=== PATIENT | female | born 1960 | race Native Hawaiian/Other Pacific Islander ===

== ENCOUNTER 2017-02-05 08:42 | Day surgery (SDC) | payer OTHER ==
[2017-01-30 08:03] VITALS: BMI 29.4
[2017-02-05] MEDS ORDERED: Lidocaine 2% w Epi 1:100,000 Inj IJ ONE (11:01)
[2017-02-05] MEDS ORDERED: ceFAZolin 1 gm FROZEN Premix 50 ML IVPB ONE (11:02)
[2017-02-05] MEDS ORDERED: Midazolam 2 MG/2 ML VIAL ONE (11:12)
[2017-02-05] MEDS ORDERED: Propofol 10 mg/ml Inj (20 ML) ONE ×2 (11:13→12:13)
[2017-02-05] MEDS ORDERED: Succinylcholine Chloride 20 mg/ml Syr (5 ml) IV ONE (11:13)
[2017-02-05] MEDS ORDERED: Lactated Ringer's 1,000 ML IV ONE ×2 (11:20→12:00)
--- NOTE | 2017-02-05 12:32 | PCM.SURG1 ---
Surgeon's Initial Post Op Note - Surgeon's Notes Surgeon: Dr. Sullivan Advertisement Compositor: Dr. Bauer PGY-1 Type of Anesthesia: General Endo Pre-Operative Diagnosis: submandibular mass Operative Findings: see operative report Post-Operative Diagnosis: see operative report Operation Performed: resection of tail end of parotid gland. excision of submandibular lymph node Specimen/Specimens Removed: tail end of parotid. submandibular lymph node Estimated Blood Loss: EBL {In ML}: 10 Blood Products Given: N/A Drains Used: No Drains Post-Op Condition: Good Date of Surgery/Procedure: 02/05/17 Time of Surgery/Procedure: 11:30
--- NOTE | 2017-02-05 13:03 | OP ---
PROCEDURE DATE: 02/05/2017 PREOPERATIVE DIAGNOSES: Mass left submandibular area and possibly mass on the inferior portion of th e parotid gland on the left side. PROCEDURE: Under general anesthesia, the patient prepared and draped in sterile fashion. An incisio n was made just around the area of the angle of the mandible, going slightly behind the ear, extended down through subcutaneous tissue down into the platysma. No nerves were involved or encountered dur ing this part of the procedure. The flaps were then developed underneath the platysma. Dissection w as carried all the way to expose the inferior portion of the parotid gland. No tumor seems to be present, but there was an induration noted in this area. This was then partially excised. Bleede rs controlled with electrocautery. Attention was then focused on the very deep submandibular mass. This appears to be a large lymph node. With blunt dissection, the mass was then enucleated and was s ubmitted as a specimen. No bleeding was noted. The wound was then closed utilizing interrupted sutu res of 3-0 Vicryl for the platysma layer and the skin was closed with a subcuticular suture of 4-0 Mo nocryl. ESTIMATED BLOOD LOSS: About 10 mL. COMPLICATIONS: None. Yakov Sullivan MD cc: [id number] TT: 02/05/2017 13:02:15 en
[2017-02-05] MEDS ORDERED: HYDROmorphone 0.5 mg/0.5 ml ISec IVP PRN (13:30)
[2017-02-05 16:05] VITALS: BP 102/78; PULSE 77; RESP 18; TEMP 97.1; O2SAT 100
== END 2017-02-05 16:36 | disposition home or self-care (01) ==
LOC: C.SDS 08:42
PROVIDERS: ATTEND Surgery
DX: D11.0 Benign neoplasm of parotid gland (principal); I10 Essential (primary) hypertension; E11.9 Type 2 diabetes mellitus without complications; E78.00 Pure hypercholesterolemia, unspecified
CPT/HCPCS: 42405; 82948; 88305; 88307; J0690; J1170; J2250; J2405; J2704; J3010; J7120

== ENCOUNTER 2017-09-14 14:52 | Emergency (ER) | payer OTHER ==
[2017-09-14 14:52] VITALS: BMI 29.4
[2017-09-14 15:06] VITALS: O2SAT 98
--- NOTE | 2017-09-14 16:18 | CT ---
PROCEDURE: CT HEAD WITHOUT CONTRAST. HISTORY: injury COMPARISON: None available. TECHNIQUE: Axial computed tomography images were obtained through the head/brain without intravenous contrast. Radiation dose: Total exam DLP = 895 mGy-cm. This CT exam was performed using one or more of the following dose reduction techniques: Automated exposure control, adjustment of the mA and/or kV according to patient size, and/or use of iterative reconstruction technique. FINDINGS: HEMORRHAGE: No intracranial hemorrhage. BRAIN: No mass effect or edema. No atrophy or chronic microvascular ischemic changes. VENTRICLES: Unremarkable. No hydrocephalus. CALVARIUM: Unremarkable. PARANASAL SINUSES: Unremarkable as visualized. No significant inflammatory changes. MASTOID AIR CELLS: Unremarkable as visualized. No inflammatory changes. OTHER FINDINGS: None. IMPRESSION: No acute findings
--- NOTE | 2017-09-14 16:38 | CT ---
PROCEDURE: CT ORBITS WITHOUT CONTRAST. HISTORY: injury COMPARISON: None available. TECHNIQUE: Axial CT images of the orbits were obtained. Coronal and sagittal reformats were generated. Radiation dose: Total exam DLP = 924 mGy-cm. This CT exam was performed using one or more of the following dose reduction techniques: Automated exposure control, adjustment of the mA and/or kV according to patient size, and/or use of iterative reconstruction technique. FINDINGS: RIGHT ORBIT: RIGHT BONY ORBIT: Normal. RIGHT INTRAORBITAL STRUCTURES: Globe: Normal. Extraocular muscles: Normal. Post septal space: Normal. Optic Nerve: Normal. Lacrimal Apparatus: Normal. RIGHT PRESEPTAL SOFT TISSUES: Normal. LEFT ORBIT: LEFT BONY ORBIT: Normal. LEFT INTRAORBITAL STRUCTURES: Globe: Normal. Extraocular muscles: Normal. Post septal space: Normal Optic Nerve: Normal. . Lacrimal Apparatus: Normal. LEFT PRESEPTAL SOFT TISSUES: Normal. OTHER: Degenerative changes are seen in the TMJs left greater than right IMPRESSION: Unremarkable non contrast enhanced CT of the orbits.
[2017-09-14 16:56] VITALS: BP 148/99; PULSE 87; RESP 18; TEMP 98.2
--- NOTE | 2017-09-14 17:18 | C.PDOC ---
History Of Present Illness 57 year old female, who is a [employer] employee, presents to the ED for evaluaiton of pain and redness to her left eyebrow and left side of her nose which began earlier today. Patient was working on the centrifuge in the lab when the cover suddenly few off and struck her on her face. Patient was wearing glasses at the time of incident. Patient denies vision change, dizziness, active bleeding, or any other injuries at this time. Time Seen by Provider: 09/14/17 15:12 Chief Complaint (Nursing): Abnormal Skin Integrity History Per: Patient History/Exam Limitations: no limitations Onset/Duration Of Symptoms: Hrs Current Symptoms Are (Timing): Still Present Location Of Injury: Left: Face (eyebrow, side of nose ) Quality Of Symptoms: Painful Additional History Per: Patient Past Medical History Reviewed: Historical Data, Nursing Documentation, Vital Signs Vital Signs: Last Vital Signs Temp 98.2 F 09/14/17 16:55 Pulse 87 09/14/17 16:55 Resp 18 09/14/17 16:55 BP 148/99 H 09/14/17 16:55 Pulse Ox 98 09/14/17 22:04 - Medical History PMH: Anxiety, Gall Bladder Disease, HTN, Hypercholesterolemia, Peripheral Edema Surgical History: Cholecystectomy, Endoscopy - [facility] Procedures INJECT/INFUSE NEC (01/07/15) Family History: States: Unknown Family Hx - Social History Hx Alcohol Use: No Hx Substance Use: No - Immunization History Hx Tetanus Toxoid Vaccination: No Hx Influenza Vaccination: Yes (07/2017) Hx Pneumococcal Vaccination: No Review Of Systems Eyes: Negative for: Vision Change Skin: Positive for: Other (left eyebrow and side of nose ) Neurological: Negative for: Dizziness Physical Exam - Physical Exam Appears: Non-toxic, No Acute Distress Skin: Normal Color, Warm, Dry, Other (erythema to elft eyebrow and left nasal area) Head: Tenderness (left eyebrow), No Abrasion, No Laceration Eye(s): bilateral: Normal Inspection Nose: No Epistaxis, No Deformity, Tenderness (left ), No Septal Hematoma Oral Mucosa: Moist Neck: Supple Extremity: Normal ROM, Capillary Refill (less than 2 seconds ) Neurological/Psych: Oriented x3, Normal Speech, Normal Cognition Gait: Steady ED Course And Treatment O2 Sat by Pulse Oximetry: 98 (RA) Pulse Ox Interpretation: Normal - CT Scan/US CT Orbit Other Rad Studies (CT/US): Interpreted By Me, Read By Radiologist, Radiology Report Reviewed CT/US Interpretation: PROCEDURE: CT ORBITS WITHOUT CONTRAST. HISTORY: injury. COMPARISON: None available. TECHNIQUE: Axial CT images of the orbits were obtained. Coronal and sagittal reformats were generated. Radiation dose: Total exam DLP = 924 mGy-cm. This CT exam was performed using one or more of the following dose reduction techniques: Automated exposure control, adjustment of the mA and/or kV according to patient size, and/or use of iterative reconstruction technique. FINDINGS: RIGHT ORBIT: RIGHT BONY ORBIT: Normal. RIGHT INTRAORBITAL STRUCTURES: Globe: Normal. Extraocular muscles: Normal. Post septal space: Normal. Optic Nerve: Normal. Lacrimal Apparatus: Normal. RIGHT PRESEPTAL SOFT TISSUES: Normal. LEFT ORBIT: LEFT BONY ORBIT: Normal. LEFT INTRAORBITAL STRUCTURES: Globe: Normal. Extraocular muscles: Normal. Post septal space: Normal. Optic Nerve: Normal. . Lacrimal Apparatus : Normal. LEFT PRESEPTAL SOFT TISSUES: Normal. OTHER: Degenerative changes are seen in the TMJs left greater than right. IMPRESSION: Unremarkable non contrast enhanced CT of the orbits. CT Head Other Rad Studies (CT/US): Interpreted By Me, Read By Radiologist, Radiology Report Reviewed CT/US Interpretation: PROCEDURE: CT HEAD WITHOUT CONTRAST. HISTORY: injury. COMPARISON: None available. TECHNIQUE: Axial computed tomography images were obtained through the head/brain without intravenous contrast. Radiation dose: Total exam DLP = 895 mGy-cm. This CT exam was performed using one or more of the following dose reduction techniques: Automated exposure control, adjustment of the mA and/or kV according to patient size, and/or use of iterative reconstruction technique. FINDINGS: HEMORRHAGE: No intracranial hemorrhage. BRAIN: No mass effect or edema. No atrophy or chronic microvascular ischemic changes. VENTRICLES: Unremarkable. No hydrocephalus. CALVARIUM: Unremarkable. PARANASAL SINUSES: Unremarkable as visualized. No significant inflammatory changes. MASTOID AIR CELLS: Unremarkable as visualized. No inflammatory changes. OTHER FINDINGS: None. IMPRESSION: No acute findings Progress Note: CT Head/ CT orbits facial ordered. Results are unremarkable. Tylenol PO admininstered. On reassessment, patient is resting comfortably, showing no signs of distress and reports an improvement in her symptoms. Patient is a stable for discharge and is advised to follow up with PMD within 1- 2 days for further evaluation and/or return to the ED if symptoms worsen. Disposition - Disposition Disposition: HOME/ ROUTINE Disposition Time: 17:17 Condition: STABLE Additional Instructions: Follow up with your PMD within 1-2 days. Return to Ed if feel worse. Prescriptions: Acetaminophen [Tylenol 325mg tab] 2 tab PO Q6 #50 tab Instructions: Head Injury (ED), Facial Contusion (ED) Forms: [employer] (Croatian), Work Excuse - Clinical Impression Clinical Impression: Minor head injury, Facial contusion - PA / [employer] CL[employer] / Resident Statement MD/DO has reviewed & agrees with the documentation as recorded. - Scribe Statement The provider has reviewed the documentation as recorded by the Scribe (Adry Francis) All medical record entries made by the Scribe were at my direction and personally dictated by me. I have reviewed the chart and agree that the record accurately reflects my personal performance of the history, physical exam, medical decision making, and the department course for this patient. I have also personally directed, reviewed, and agree with the discharge instructions and disposition.
== END 2017-09-14 17:23 | disposition home or self-care (01) ==
LOC: C.ER 14:52
DX: S00.83XA Contusion of other part of head, initial encounter (principal); W22.8XXA Striking against or struck by other objects, initial encounter; Y92.238 Other place in hospital as the place of occurrence of the external cause; Y99.0 Civilian activity done for income or pay

== ENCOUNTER 2017-12-07 06:05 | Day surgery (SDC) | payer OTHER ==
[2017-12-04 14:23] VITALS: BMI 28.8
[2017-12-07] MEDS ORDERED: Propofol 10 mg/ml Inj (20 ML) ONE ×4 (08:07→09:53)
[2017-12-07] MEDS ORDERED: Midazolam 2 MG/2 ML VIAL ONE (08:08)
[2017-12-07] MEDS ORDERED: Lidocaine Hydrochloride 5 ML INJ ONE (08:08)
[2017-12-07] MEDS ORDERED: ePHEDrine 50 mg/ml Inj ONE (08:13)
--- NOTE | 2017-12-07 08:15 | CP.SDSHP ---
Same Day Surgery H & P - History Proposed Procedure: EGD, screening colonoscopy Pre-Op Diagnosis: Epigastric pain, Coates's esophagus, screening for colorectal cancer - Previous Medical/Surgical History Cardiac: Hypertension Endocrine/Metabolic: Diabetes Previous Surgical History: Cholecystectomy, tubal ligation - Allergies Allergies: Allergies shellfish derived Allergy (Intermediate, Verified 09/14/17 15:27) RASH hives - Current Medications Current Medications: See reconciliation sheet - Physical Exam General Appearance: WD WN female in NAD Vital Signs: Vital Signs 12/07/17 06:45 Temperature 98.6 F Pulse Rate 80 Respiratory 20 Rate Blood Pressure 118/69 O2 Sat by Pulse 97 Oximetry Mental Status: Alert & Oriented x3 Neuro: WNL Heart: WNL Lungs: WNL GI: WNL - {Optional Preform as Required} Abdomen: WNL - Impression Impression: Epigastric pain, Coates's esophagus, screening for colorectal cancer Pt. Evaluated Today:Candidate for Anesthesia & Procedure: Yes - Date & Time Date: 12/07/17 Time: 08:14 Short Stay Discharge - Short Stay Discharge Admitting Diagnosis/Reason for Visit: SCREENING Disposition: HOME/ ROUTINE
[2017-12-07] MEDS ORDERED: Lactated Ringer's 1,000 ML IV ONE (08:25)
[2017-12-07 09:42] VITALS: TEMP 98
[2017-12-07 10:06] VITALS: O2SAT 100
[2017-12-07] MEDS ORDERED: Esmolol 100 mg/10ml Inj IV ONE (10:13)
[2017-12-07 10:25] VITALS: BP 118/70; PULSE 74; RESP 16
== END 2017-12-07 11:05 | disposition home or self-care (01) ==
LOC: C.ENDO 06:05
PROVIDERS: ATTEND Internal Medicine Gastroenterology
DX: Z12.11 Encounter for screening for malignant neoplasm of colon (principal); K22.70 Barrett's esophagus without dysplasia; I10 Essential (primary) hypertension; E11.9 Type 2 diabetes mellitus without complications; K64.0 First degree hemorrhoids; D12.2 Benign neoplasm of ascending colon; K62.1 Rectal polyp; K57.30 Diverticulosis of large intestine without perforation or abscess without bleeding; K44.9 Diaphragmatic hernia without obstruction or gangrene; K29.70 Gastritis, unspecified, without bleeding; K31.7 Polyp of stomach and duodenum
CPT/HCPCS: 43239; 45380; 82948; 88305; 88312; 88342; J2250; J2704; J7120

== ENCOUNTER 2018-11-16 11:15 | Outpatient (CLI) | payer OTHER | END 2018-11-16 11:16 | disposition home or self-care (01) | LOC: C.LAB 11:15 | DX: Z12.4 Encounter for screening for malignant neoplasm of cervix (principal) ==

== ENCOUNTER 2018-12-06 06:59 | Outpatient (CLI) | payer OTHER | END 2018-12-06 07:00 | disposition home or self-care (01) | LOC: C.LAB 06:59 | DX: N13.2 Hydronephrosis with renal and ureteral calculous obstruction (principal) ==

== ENCOUNTER 2018-12-13 11:09 | Outpatient (CLI) | payer OTHER | END 2018-12-13 11:10 | disposition home or self-care (01) | LOC: C.USIC 11:09 ==

== ENCOUNTER → 2019-03-01 | Outpatient (CLI) | payer OTHER | LOC: C.MAMMO 16:18 | DX: Z12.31 Encounter for screening mammogram for malignant neoplasm of breast (principal) ==